=== PATIENT | female | born 1975 | race Caucasian/White ===

== ENCOUNTER 2018-02-17 20:37 | Emergency (ER) | payer OTHER ==
[2018-02-17 21:09] VITALS: BP 139/71; PULSE 70; TEMP 98.1; BMI 25.0
--- NOTE | 2018-02-18 16:07 | EKG ---
Test Reason : Blood Pressure : / mmHG Vent. Rate : 074 BPM Atrial Rate : 074 BPM P-R Int : 124 ms QRS Dur : 078 ms QT Int : 386 ms P-R-T Axes : 082 045 041 degrees QTc Int : 428 ms NORMAL SINUS RHYTHM NONSPECIFIC ST ABNORMALITY ABNORMAL ECG NO PREVIOUS ECGS AVAILABLE Confirmed by MIGEL IBRAHIM MD ([id number]) on 02/18/2018 4:06:47 PM Referred By: Confirmed By:MIGEL IBRAHIM MD
== END 2018-02-17 22:05 | disposition left against medical advice (07) ==
LOC: JER 20:37
DX: Z53.21 Procedure and treatment not carried out due to patient leaving prior to being seen by health care provider (principal)
CPT/HCPCS: 93005; 93010; 99281-25

== ENCOUNTER 2021-01-30 10:54 | Emergency (ER) | payer OTHER ==
[2021-01-30 11:02] VITALS: BP 114/73; PULSE 76; TEMP 97.9; BMI 25.3
[2021-01-30 12:33] LABS: HCG,QUALITATIVE URINE Negative
[2021-01-30 12:34] LABS: PH,URINE 5.5 (5.0-8.0); URINE APPEARANCE CLEAR; URINE BILIRUBIN NEGATIVE (NEGATIVE); URINE COLOR YELLOW; URINE GLUCOSE (UA) NEGATIVE (NEGATIVE); URINE KETONE NEGATIVE (NEGATIVE); URINE LEUK ESTERASE TRACE (NEGATIVE); URINE NITRITE NEGATIVE (NEGATIVE); URINE PROTEIN NEGATIVE (NEGATIVE); URINE UROBILINOGEN 0.2 mg/dL (0.2-1.0)
[2021-01-30 13:36] LABS: EPI CELLS FEW /uL (0-25.1); URINE RBC 0-3 /uL (0-23.9)
== END 2021-01-30 16:58 | disposition home or self-care (01) ==
LOC: JER 10:54
DX: R31.9 Hematuria, unspecified (principal)
CPT/HCPCS: 76775-TC; 76856-TC; 81003; 84703; 87086; 87186; 99285-25

== ENCOUNTER 2021-06-14 20:59 | Emergency (ER) | payer OTHER ==
[2021-06-14 21:06] VITALS: BP 126/75; PULSE 77; TEMP 98.2; BMI 25.0
[2021-06-14 22:33] LABS: EPI CELLS 2 /uL (0-25.1); HYALINE CASTS 1 /uL (0-3.1); PH,URINE 5.5 (5.0-8.0); URINE APPEARANCE CLOUDY; URINE BACTERIA 7197 /uL (0-1359); URINE BILIRUBIN NEGATIVE (NEGATIVE); URINE COLOR YELLOW; URINE GLUCOSE (UA) NEGATIVE (NEGATIVE); URINE KETONE NEGATIVE (NEGATIVE); URINE LEUK ESTERASE 3+ (NEGATIVE); URINE NITRITE NEGATIVE (NEGATIVE); URINE PROTEIN 1+ (NEGATIVE); URINE RBC 69 /uL (0-23.9); URINE UROBILINOGEN 0.2 mg/dL (0.2-1.0); URINE WBC 1783 /uL (0-25.8)
[2021-06-14] MEDS ORDERED: CEPHALEXIN MONOHYDRATE 500 MG CAPSULE (UD) PO ONE (22:37)
[2021-06-14] MEDS ORDERED: PHENAZOPYRIDINE HCL 100 MG TABLET (FP) PO ONE (22:37)
[2021-06-14] MEDS ORDERED: PHENAZOPYRIDINE HCL 100 MG TABLET (FP) ONE (22:45)
[2021-06-14] MEDS ORDERED: CEPHALEXIN MONOHYDRATE 500 MG CAPSULE (UD) ONE (22:46)
== END 2021-06-14 22:49 | disposition home or self-care (01) ==
LOC: JER 20:59
DX: N39.0 Urinary tract infection, site not specified (principal)
CPT/HCPCS: 81003; 87086; 87186; 99283-25

== ENCOUNTER 2021-10-19 19:34 | Emergency (ER) | payer OTHER ==
[2021-10-19 19:41] VITALS: BP 127/86; PULSE 81; TEMP 98.3; BMI 23.5
[2021-10-19] MEDS ORDERED: PHENAZOPYRIDINE HCL 100 MG TABLET (FP) PO ONE (21:21)
[2021-10-19] MEDS ORDERED: PHENAZOPYRIDINE HCL 100 MG TABLET (FP) ONE (21:33)
[2021-10-19] MEDS ORDERED: CEPHALEXIN MONOHYDRATE 500 MG CAPSULE (UD) PO ONE (21:52)
[2021-10-19] MEDS ORDERED: CEPHALEXIN MONOHYDRATE 500 MG CAPSULE (UD) ONE (22:00)
[2021-10-19 22:07] LABS: EPI CELLS 8 /uL (0-25.1); HYALINE CASTS 2 /uL (0-3.1); PH,URINE 6.5 (5.0-8.0); URINE APPEARANCE CLOUDY; URINE BACTERIA 284 /uL (0-1359); URINE BILIRUBIN NEGATIVE (NEGATIVE); URINE COLOR YELLOW; URINE GLUCOSE (UA) NEGATIVE (NEGATIVE); URINE KETONE NEGATIVE (NEGATIVE); URINE LEUK ESTERASE 3+ (NEGATIVE); URINE NITRITE NEGATIVE (NEGATIVE); URINE PROTEIN 2+ (NEGATIVE); URINE RBC 3407 /uL (0-23.9); URINE UROBILINOGEN 0.2 mg/dL (0.2-1.0); URINE WBC 3194 /uL (0-25.8)
[2021-10-19 22:08] LABS: HCG,QUALITATIVE URINE Negative
== END 2021-10-19 22:39 | disposition home or self-care (01) ==
LOC: JERFT 19:34
DX: N39.0 Urinary tract infection, site not specified (principal)
CPT/HCPCS: 81003; 84703; 87086; 87186; 99283-25

== ENCOUNTER 2022-02-24 11:37 | Emergency (ER) | payer OTHER ==
[2022-02-24 11:48] VITALS: BP 124/52; PULSE 70; RESP 16; TEMP 97.9; BMI 24.3
== END 2022-02-24 12:05 | disposition home or self-care (01) ==
LOC: JERFT 11:37
DX: S60.462A Insect bite (nonvenomous) of right middle finger, initial encounter (principal); W57.XXXA Bitten or stung by nonvenomous insect and other nonvenomous arthropods, initial encounter; Y92.9 Unspecified place or not applicable
CPT/HCPCS: 99283-25

== ENCOUNTER 2022-05-12 11:55 | Emergency (ER) | payer OTHER ==
[2022-05-12 12:10] VITALS: BP 132/86; PULSE 72; RESP 18; TEMP 97.3; BMI 25.8
[2022-05-12] MEDS ORDERED: KETOROLAC TROMETHAMINE 30 MG/1 ML VIAL IM ONE (12:43)
[2022-05-12] MEDS ORDERED: DIPHTH,PERTUSS(ACELL),TET 0.5 ML DISP.SYRIN IM ONE ×2 (12:44→12:48)
[2022-05-12] MEDS ORDERED: KETOROLAC TROMETHAMINE 30 MG/1 ML VIAL ONE (12:47)
== END 2022-05-12 13:52 | disposition home or self-care (01) ==
LOC: JERFT 11:55
PROC: 3E0234Z Introduction of Serum, Toxoid and Vaccine into Muscle, Percutaneous Approach (ICD-10-PCS; principal; 2022-05-12)
PROC: 3E0233Z Introduction of Anti-inflammatory into Muscle, Percutaneous Approach (ICD-10-PCS; 2022-05-12)
DX: S82.892A Other fracture of left lower leg, initial encounter for closed fracture (principal)
CPT/HCPCS: 73610-TC-LT-FY; 73630-TC-LT; 90471; 90715; 96372; 99284-25

== ENCOUNTER 2023-08-18 22:10 | Emergency (ER) | payer OTHER ==
[2023-08-18 22:18] VITALS: BP 114/51; PULSE 75; RESP 16; TEMP 98.5; BMI 22.7
[2023-08-18 22:55] LABS: HCG,QUALITATIVE URINE Negative
[2023-08-18] MEDS ORDERED: PHENAZOPYRIDINE HCL 100 MG TABLET (FP) PO ONE (23:05)
[2023-08-18] MEDS ORDERED: NITROFURANTOIN MONOHYD/M-CRYST 100 MG CAPSULE PO STA (23:05)
[2023-08-18] MEDS ORDERED: PHENAZOPYRIDINE HCL 100 MG TABLET (FP) ONE (23:12)
[2023-08-18] MEDS ORDERED: NITROFURANTOIN MONOHYD/M-CRYST 100 MG CAPSULE PO ONE (23:13)
== END 2023-08-18 23:49 | disposition home or self-care (01) ==
LOC: FER 22:10
DX: N30.00 Acute cystitis without hematuria (principal); R35.0 Frequency of micturition; R30.0 Dysuria
CPT/HCPCS: 81003; 81015; 84703; 87086; 99283-25